=== PATIENT | female | born 1945 | race Caucasian/White ===

== ENCOUNTER 2016-10-01 05:33 | Inpatient (IN) | payer OTHER ==
[~2016-10-01] VITALS: Ht 162.6 cm; Wt 82.6 kg
--- NOTE | ~2016-10-01 | O ---
[facility] [place] [address] OPERATIVE REPORT Name: CHACE HAJI Room #: 418-P [facility] IN M.R.#: [id number] Admission: 10/01/16 Attend Phys: Atilio Orozco MD, Discharge: 10/04/16 Date of : 45 Report #: [id number] THIS REPORT FOR: //name// CC: Serena Orozco DATE OF SERVICE: 10/01/2016 PREOPERATIVE DIAGNOSES: 1. Recurrent incisional ventral hernia. 2. Colostomy status. 3. Hypertension. 4. Chronic obstructive pulmonary disease. 5. Obstructive sleep apnea, CPAP dependent. 6. Diabetes mellitus. 7. Hyperlipidemia. 8. Obesity with a body mass index of 31.56. POSTOPERATIVE DIAGNOSES: 1. Incarcerated recurrent incisional ventral hernia. 2. Colostomy status. 3. Hypertension. 4. Chronic obstructive pulmonary disease. 5. Obstructive sleep apnea, CPAP dependent. 6. Diabetes mellitus. 7. Hyperlipidemia. 8. Obesity with a body mass index of 31.56. 9. Ischemic, nonviable abdominal wall fascial tissue. 10. Loss of abdominal domain. PROCEDURES PERFORMED: 1. Exploratory laparotomy. 2. Extensive lysis of adhesions. 3. Debridement of ischemic/nonviable abdominal wall fascial tissue. 4. Bilateral component separation of the anterior abdominal wall to achieve a tension-free fascial closure. 5. Complex abdominal wall reconstruction with open repair of her incarcerated recurrent incisional ventral hernia with bioresorbable mesh. 6. Adjacent tissue transfer closure of the anterior abdominal wall measuring 32 x 29 cm in dimension (928 square cm). 7. Placement of a topical wound VAC device (Prevena). SURGEON: Atilio Orozco MD STUFFING MACHINE OPERATOR: Maycol Mccaryt MD [address] [address] OPERATIVE REPORT Name: CHACE HAJI Room #: 418-P DIS IN .R.#: [id number] Admission: 10/01/16 Attend Phys: Atilio Orozco MD, Discharge: 10/04/16 Date of : 45 Report #: [id number] ANESTHESIA: General endotracheal anesthesia. ESTIMATED BLOOD LOSS: Minimal (less than 20 mL). COMPLICATIONS: None appreciated. SPECIMENS: The ischemic nonviable abdominal wall tissue with a small portion of nonabsorbed bioresorbable mesh to pathology. INDICATIONS: The patient is a 71-year-old obese female who follows up approximately 11 months status post a complex abdominal wall reconstruction with a colostomy reversal. Procedure was done in conjunction with Dr. Lilli Rondon of the colorectal surgery service. Unfortunately, the patient did develop an anastomotic leak from her colorectal anastomosis and then underwent an emergent reexploration with placement of an end colostomy once again. The patient was quite ill postoperatively, but has recovered nicely and has been in her usual state of health since then. The patient did develop 3 small areas where her longitudinal midline wound had infection and was nonhealing and underwent aggressive local wound care. Since that time, the patient has developed bulging at the superior aspect of her longitudinal midline wound consistent with a recurrent incisional ventral hernia likely due to her acute illness and the emergent reexploration needed at the time of her prior operation. As such, indication was for open repair today. PROCEDURE: After explaining the risks, benefits and alternatives of the procedure with the patient in detail in the preoperative holding area and obtaining written consent, the patient was brought to the operating room and placed supine on the operating room table. After conducting a thorough timeout procedure, verifying correct patient and procedure, the patient was given general endotracheal anesthesia. Once adequate anesthesia was obtained, her SCDs were hooked up to pneumatic compression device, she was given a preoperative dose of antibiotics in line with the SCIP protocol. The patient's abdomen was prepped and draped in standard surgical sterile fashion after placing a Watkins catheter in the colostomy and then we used Ioban to cover over the colostomy to prevent intra-procedural contamination. A #10 bladed scalpel was now used to create a longitudinal midline wound from the subxiphoid location to the supraumbilical location. Electrocautery was used to carry this down through skin and subcutaneous tissues to ensure hemostasis. Once I arrived upon the fascia in the superior most aspect of the incision, I was able to gain entry into the abdomen through territory where finger was placed into the abdomen and I proceeded to open the midline wound in a controlled fashion with a finger in the abdomen to prevent injury. Upon doing so, we bisected the hernia sac down the midline as our fascial edges had retracted laterally. I now carried out lysis of adhesions sweeping the transverse colon down away from the posterior aspect of the anterior abdominal wall, but luckily we did not see any evidence of small-bowel in the bed of the wound whatsoever and thereby without [address] [address] OPERATIVE REPORT Name: CHACE HAJI Room #: 418-P DIS IN M.R.#: [id number] Admission: 10/01/16 Attend Phys: Atilio Orozco MD, Discharge: 10/04/16 Date of : 45 Report #: [id number] manipulating small-bowel, hopefully her chance of developing an ileus will be lessened. Once we had cleared off the entirety of the posterior aspect of the anterior abdominal wall in the upper abdomen, the colostomy was identified and we felt no evidence of a parastomal hernia. The patient did have several areas of abdominal wall fascial tissue that appeared ischemic and had nonabsorbed bioresorbable mesh from her prior exploration and this was excised in an excisional debridement fashion and passed off the field as specimen. Now that we had cleared off the fascial edges circumferentially, the defect itself was sizable and measured approximately 17 cm in craniocaudal dimension x 8 cm laterally. Placing Roshan clamps on the fascial edges in attempts at medialize in the fascial edges showed that it was under extreme tension and as such, I proceeded to clear off the fascia circumferentially externally creating large skin flaps with electrocautery. I now performed a bilateral component separation technique of the anterior abdominal wall by releasing the external oblique by scoring along the lateral aspect of the rectus abdominis muscle bilaterally. This allowed significant medial mobilization of the midline fascial edges and these could now be brought together in a tension free fashion. At this juncture, I now proceeded to close the midline fascial wound using looped #1 PDS in standard running fashion, being careful that we did not injure bowel or the colostomy in any way. Once this was closed down the midline, I proceeded to buttress the repair with a piece of Phasix bioresorbable mesh added as an onlay. I selected a piece that was 20 x 25 cm in dimension and as we had created large skin flaps circumferentially, the mesh itself was almost perfectly sized with just slight tailoring necessary with curved Shaw scissors. I then anchored the mesh into place as an onlay using several sutures of 0 PDS suture in standard fashion. This gave us excellent overlap in the superior and inferior aspects of at least 4 cm and significant lateral overlap. As I had created large skin flaps circumferentially, I wanted to attain soft tissue coverage overlying the onlay mesh and as such, I did perform an adjacent tissue transfer closure of the anterior abdominal wall. Electrocautery was used to score internally and along the lateral aspect and this allowed me to medially rotate subcutaneous tissue overlying the mesh. This tissue was anchored into position using 3-0 Vicryl in standard interrupted inverted fashion at several locations. This gave us excellent soft tissue coverage overlying the onlay mesh. I then used interrupted 3-0 Vicryl sutures in standard interrupted inverted fashion to anchor dermis as well. Skin gurpreet were then applied. It should be noted I did bring out a 19-Citizen Of [place] round Ozzy-Larkin drain out of the right lower quadrant, which was placed in the subcutaneous space prior to performing an adjacent tissue transfer closure to evacuate any potential seroma postoperatively. This was anchored to the skin using 2-0 nylon in standard fashion. Now that skin gurpreet were applied to the longitudinal midline wound, I did elect to place a Prevena topical wound VAC device as she does have a colostomy and this will help prevent contamination. Prevena device was applied in standard fashion, it was attached to the self contained negative pressure suction apparatus with no evidence of a leak seen. The Watkins catheter that was placed in the ostomy was now removed and a standard ostomy appliance was [facility] [address] [place] [address] OPERATIVE REPORT Name: CHACE HAJI Room #: 418-P DIS IN M.R.#: [id number] Admission: 10/01/16 Attend Phys: Atilio Orozco MD, Discharge: 10/04/16 Date of : 45 Report #: [id number] applied. At the end of the procedure, all instrument, needle, and sponge counts were correct. The patient tolerated the procedure without incident, was awakened in the operating room and transitioned to the recovery room in stable condition with no apparent complications. <ELECTRONICALLY SIGNED> By: Atilio Orozco MD, FACS 10/04/16 1818 [id number] Atilio Orozco MD, FACS /nt
--- NOTE | ~2016-10-01 | S ---
[facility] [place] [address] SURGICAL PATH RPT PROCEDURE Name: CHACE PRECIADO Room #: 418-P DIS IN M.R.#: [id number] Admission: 10/01/16 Date of : 45 Discharge: 10/04/16 Report #: [id number] Path Case #: [id number] PATHOLOGY REPORT COLLECTION DATE: 10/01/2016 RECEIVED DATE: 10/01/2016 SUBMITTING PHYS: Dr. Atilio Orozco OTHER PHYS: Dr. Serena Mccain SPECIMEN(S) RECEIVED: A.Abdominal wall tissue * * * * * * * * * * * * FINAL DIAGNOSIS: Skin and subcutaneous tissue, abdominal wall tissue, repair: - Moderate chronic inflammation along with reactive changes associated with focal polarizable material consistent with mesh. (IUV:mml; d/t: 10/05/2016) PATHOLOGIST: Xenia Llamas M.D. REPORT ELECTRONICALLY SIGNED BY: Xenia Llamas M.D. DATE/TIME: 10/05/2016 16:38 * * * * * * * * * * * * GROSS PATHOLOGY: Received in formalin labeled "Chace Preciado, abdominal wall tissue," is a piece of fibromembranous tissue surrounding a segment of mesh, measuring 5.2 x 2.1 x 1.5 cm. No nodules or lesions are identified. Under Ground Miner tissue is submitted in cassette A1. (MARK; 10/02/2016) CLINICAL HISTORY: Ventral hernia INITIAL CPT CODE(S): 14636 Professional services performed by [facility] at [facility] [address], [place] [address] Technical services performed by [facility] at [address] [place] [id number]. [facility] [address] [place] [address] SURGICAL PATH RPT PROCEDURE Name: ADITHYACHACE Allan Room #: 418-P [facility] IN M.R.#: [id number] Admission: 10/01/16 Date of : 45 Discharge: 10/04/16 Report #: [id number] Path Case #: [id number] [address] PHONE: [phone] DIRECTOR: Jayesh Ren M.D. * * * END OF REPORT * * *
[~2016-10-01 05:33] MED LIST: ADVAIR 250-501 EACH; ADVAIR 250-501 EACH INH; ADVAIR HFA115 MCG/21 INH; ALDACTONE25 MG PO; APAP650 PO; ASPIRIN EC325 MG PO; ASPIRIN325 PO; AVANDAMET 2 MG1 EACH; BACTROBAN CREAM30 G1 TOP; BENZONATATE200 MG; BIOTENE1000 ML MM; BROVANA15 MCG/2 M INH; CALCIUM 600 +1 EAC1; CALCIUM 600 +1 EAC1 PO; CEFTIN500 MG PO; CENTRUM SILVER1 EAC4 PO; CIPROFLOXACIN500 M1 PO; CIPROFLOXACIN500 M3 PO; COLACE100 MG PO; D3; DICLOFENAC SODI75 M1; DICLOFENAC SODI75 M2 PO; DICLOFENAC SODI75 MG PO; DOXYCYCLINE 10100 M1; DUONEB 2.5-0.5 M3 ML; DUONEB 2.5-0.5 M3 ML INH; ECHINACEA167 MG PO; ENOXAPARIN40 MG/0.1 SUBQ; FENOFIBRATE160 MG PO; FISH OIL 1,001000 M1 PO; FISH OIL 1,001000 M2 PO; FISH OIL SOFTG1 EACH; FLEXERIL PO; FLOMAX PO; FLORINEF ACETA0.1 MG PO; FUROSEMIDE 40 M40 M1 PO; GABAPENTIN 100100 MG PO; GUAIFENESIN WI120 ML PO; HYDROCODON-ACE1 EAC7 PO; HYDROCODONE-AP1 EAC6 PO; IPRAT-ALBUT 0.5-3 ML IH; IRON325 PO; LASIX 40 MG TAB40 M2 PO; LEVAQUIN 750 M750 MG PO; METFORMIN HCL500 MG PO; MIRALAX17 G1 PO; NAPROSYN500 MG PO; NORCO 5-325 TA1 EACH PO; NOVOLOG100 UNIT/1 SUBQ; OMEPRAZOLE20 MG; OMEPRAZOLE40 MG PO; OXYCODONE HCL 55 MG PO; OXYIR5 MG PO; PERCOCET 5-3251 EACH PO; PHENERGAN 25 MG25 M1 PO; PREDNISONE 10 M10 MG PO; PRILOSEC40 MG PO; PROAIR HFA8.5 GM; PROMS25 WY RECTAL; SPIRIVA; SPIRIVA INH; TRAMADOL PO; TRICOR145 MG PO; ULTRACET TABLE1 EACH PO; ULTRACET TABLET1 TAB; ULTRACET TABLET1 TAB PO; VITAMIN D3 PO; VITAMIN D31000 UNI2 PO; VITAMINC500 PO; ZOCOR40 MG PO; ZOFRAN ODT4 MG PO; ZOLOFT 50 MG TA50 M1; ZOLOFT100 MG PO
[2016-10-01 06:46] LABS: HEMATOCRIT 39.6 % (37.0-47.0); HEMOGLOBIN 13.3 gm/dL (12.0-15.0); MCH 29.3 pg (26.0-34.0); MCHC 33.5 g/dL (28.0-37.0); MCV 87.4 fL (80.0-100.0); RBC 4.53 mil/uL (4.20-5.00); RDW 14.4 % (10.5-14.5); WBC 11.6 thou/uL (4.0-11.0)
[2016-10-01 06:54] LABS: CALCIUM 9.1 mg/dL (8.5-10.1); CREATININE 1.1 mg/dL (0.6-1.0); POTASSIUM 3.8 mmol/L (3.5-5.1)
[2016-10-01 07:00] VITALS: BP 130/73
[2016-10-01 11:56] VITALS: BP 135/70
[2016-10-01 12:15] VITALS: BP 135/70
[2016-10-01 12:45] VITALS: BP 124/65; BP 139/69
[2016-10-01 15:27] VITALS: BP 117/67
[2016-10-01 20:00] VITALS: BP 117/52
[2016-10-02 04:00] VITALS: BP 125/67
[2016-10-02 04:00] LABS: CALCIUM 8.2 mg/dL (8.5-10.1); CREATININE 1.1 mg/dL (0.6-1.0)
[2016-10-02 04:07] LABS: POTASSIUM 4.9 mmol/L (3.5-5.1)
[2016-10-02 04:08] LABS: HEMATOCRIT 36.5 % (37.0-47.0); HEMOGLOBIN 11.9 gm/dL (12.0-15.0); MCH 29.1 pg (26.0-34.0); MCHC 32.5 g/dL (28.0-37.0); MCV 89.4 fL (80.0-100.0); RBC 4.08 mil/uL (4.20-5.00); RDW 14.7 % (10.5-14.5); WBC 22.3 thou/uL (4.0-11.0)
[2016-10-02 07:04] VITALS: BP 95/50
[2016-10-02 14:57] VITALS: BP 98/43
[2016-10-02 19:31] VITALS: BP 94/34
[2016-10-03 03:30] VITALS: BP 139/67
[2016-10-03 04:43] LABS: HEMOGLOBIN 10.3 gm/dL (12.0-15.0); MCH 28.7 pg (26.0-34.0); MCV 89.7 fL (80.0-100.0); PLATELET COUNT 216 thou/uL (150-400); RBC 3.57 mil/uL (4.20-5.00); WBC 15.5 thou/uL (4.0-11.0)
[2016-10-03 04:45] LABS: MANUAL DIFF YES
[2016-10-03 04:50] LABS: CALCIUM 8.6 mg/dL (8.5-10.1); CREATININE 0.8 mg/dL (0.6-1.0); POTASSIUM 3.9 mmol/L (3.5-5.1)
[2016-10-03 05:58] LABS: ABSOLUTE NEUTROPHILS 12.7 thou/uL (1.4-8.2); TOTAL CELL COUNT 100
[2016-10-03 07:20] VITALS: BP 122/60
[2016-10-03 15:33] VITALS: BP 151/71
[2016-10-03 20:00] VITALS: BP 139/53
[2016-10-04 02:10] LABS: GLYCOHEMOGLOBIN (HGB A1C) 7.9 % (4.8-5.6)
[2016-10-04 03:54] LABS: BASOPHILS 0.5 % (0.0-2.0); EOSINOPHILS 1.3 % (0.0-3.0); HEMATOCRIT 31.8 % (37.0-47.0); HEMOGLOBIN 10.7 gm/dL (12.0-15.0); LYMPHOCYTES 16.9 % (24.0-44.0); MCH 29.3 pg (26.0-34.0); MCHC 33.5 g/dL (28.0-37.0); MCV 87.4 fL (80.0-100.0); MONOCYTES 8.2 % (1.0-8.0); PLATELET COUNT 231 thou/uL (150-400); POLYS 73.1 % (36.0-66.0); RBC 3.63 mil/uL (4.20-5.00); RDW 14.3 % (10.5-14.5)
[2016-10-04 04:00] VITALS: BP 153/88
[2016-10-04 04:01] LABS: CALCIUM 8.8 mg/dL (8.5-10.1); CREATININE 0.7 mg/dL (0.6-1.0); POTASSIUM 3.5 mmol/L (3.5-5.1)
[2016-10-04 04:02] LABS: MANUAL DIFF NO
[2016-10-04 07:14] VITALS: BP 160/76
[2016-10-04] MEDS ORDERED: HYDROCODONE-AP1 EAC6 PO (11:46)
[2016-10-04] MEDS ORDERED: SENNA-S TABLET1 EACH PO (11:46)
[2016-10-04 12:53] VITALS: BP 160/76
== END 2016-10-04 14:58 | disposition home or self-care (01) | DRG 336 ==
LOC: 4E 05:33 → TBA 05:33 → PRE 09:47 → 4E 11:45 → PRE 15:18 → 4E 10-04 14:58
PROVIDERS: Internal Medicine Endocrinology, Diabetes & Metabolism; Surgery
PROC: 0DNE0ZZ Release Large Intestine, Open Approach (ICD-10-PCS; principal; 2016-10-01)
PROC: 0JB80ZZ Excision of Abdomen Subcutaneous Tissue and Fascia, Open Approach (ICD-10-PCS; principal; 2016-10-01)
PROC: 0WUF0JZ Supplement Abdominal Wall with Synthetic Substitute, Open Approach (ICD-10-PCS; principal; 2016-10-01)
DX: K43.0 Incisional hernia with obstruction, without gangrene (principal); N17.9 Acute kidney failure, unspecified; I10 Essential (primary) hypertension; G47.33 Obstructive sleep apnea (adult) (pediatric); E11.9 Type 2 diabetes mellitus without complications; E78.5 Hyperlipidemia, unspecified; E66.9 Obesity, unspecified; F32.9 Major depressive disorder, single episode, unspecified; E78.00 Pure hypercholesterolemia, unspecified; Z96.649 Presence of unspecified artificial hip joint; J44.9 Chronic obstructive pulmonary disease, unspecified; N20.0 Calculus of kidney; Z98.1 Arthrodesis status; Z87.891 Personal history of nicotine dependence; Z68.31 Body mass index [BMI] 31.0-31.9, adult; Z93.3 Colostomy status
CPT/HCPCS: 10783; 50010; 50101; 50386; 50953; 51412; 54022; 54109; 56524; 56525; 56527; 56530; 57092; 62110; 62900; 70005

== ENCOUNTER 2018-03-28 06:47 | Inpatient (IN) | payer OTHER ==
[~2018-03-28] VITALS: Ht 162.6 cm; Wt 78.5 kg
--- NOTE | ~2018-03-28 | PATH ---
[facility] [address] [place] [address] PATHOLOGY RPT PROCEDURE Name: ADITHYACHACE Lemus Room #: 424-P ADM IN M.R.#: [id number] Admission: 03/29/18 Date of : 45 Discharge: Report #: [id number] Path Case #: [id number] [facility] Accession Number: [id number] . 01 Material submitted: . PARASTOMAL HERNIA SAC . 01 Clinical history: . Parastomal hernia . 02 Diagnosis: Fiber adipose tissue, parastomal hernia sac, repair: - Reactive changes and congestion, compatible with a hernia sac. - Incidental reactive lymph node. . (IUV:at;03/30/2018) QTA/03/30/2018 . 02 Electronically signed: . Xenia Llamas MD, Pathologist NPI- [id number] . 01 Gross description: . The specimen is received in formalin, labeled "Chace Preciado, parastomal hernia sac" and consists of a segment of membranous tissue with attached yellow adipose tissue measuring 5.5 x 2.3 x 0.5 cm. Sectioning reveals an encapsulated possible nodule measuring 0.3 x 0.3 cm. No additional nodules or mass lesions are identified. Chief Librarian Extension Department sections are submitted in A1-A2 with the possible nodule in A1. (SDY; 03/29/2018) SYU/SYU . 02 Pathologist provided ICD-10: K43.5 . 02 CPT . 158440 Specimen Comment: A courtesy copy of this report has been sent to Specimen Comment: [phone], . Specimen Comment: Report sent to / DR COE Specimen Comment: A duplicate report has been generated due to demographic updates. Performed at: 01 [facility] [address] [id number] MD Bruno Rondon MD Phone: [phone] Performed at: [address] [address] PATHOLOGY RPT PROCEDURE Name: CHACE PRECIADO Room #: 424-P ADM IN M.R.#: [id number] Admission: 03/29/18 Date of : 45 Discharge: Report #: [id number] Path Case #: [id number] [address] [id number] MD Xenia Llamas MD Phone: [phone]
--- NOTE | ~2018-03-28 | O ---
[facility] [place] [address] OPERATIVE REPORT Name: CHACE HAJI Room #: 424-P [facility] IN M.R.#: [id number] Admission: 03/29/18 Attend Phys: Atilio Orozco MD, Discharge: 03/31/18 Date of : 45 Report #: [id number] THIS REPORT FOR: //name// CC: Serena Mccain Atilio Orozco DATE OF SERVICE: 03/29/2018 PREOPERATIVE DIAGNOSIS: Incarcerated recurrent incisional and parastomal hernia. POSTOPERATIVE DIAGNOSES: 1. Incarcerated recurrent incisional and parastomal hernia. 2. Intra-abdominal adhesions. PROCEDURES PERFORMED: 1. Exploratory laparotomy with extensive lysis of adhesions. 2. Debridement of ischemic/necrotic abdominal wall fascia. 3. Complex abdominal wall reconstruction with repair of multiple incarcerated recurrent incisional and parastomal hernia using bioresorbable mesh. 4. Unilateral right-sided component separation. 5. Adjacent tissue transfer closure of the anterior abdominal wall measuring 38 x 35 cm in dimension (1330 square cm). 6. Placement of a topical Prevena wound VAC device. SURGEON: Atilio Orozco MD RN LPN CNA: Hany Landin DO ANESTHESIA: General endotracheal anesthesia. ESTIMATED BLOOD LOSS: Minimal (20 mL). COMPLICATIONS: None appreciated. SPECIMENS: Ischemic/necrotic abdominal wall fascia to pathology. INDICATIONS: The patient is a 72-year-old female with a complex past surgical history, who has a descending colostomy in the left mid abdomen with evidence of parastomal herniation by physical exam and by CT scan. In addition, the patient has easily palpable recurrent incisional hernias down her longitudinal midline incision and as such, indication was for the above-mentioned procedures today. DESCRIPTION OF PROCEDURE: After explaining the risks, benefits and alternatives of the procedure with the patient in detail in the preoperative holding area and [facility] [address] [place] [address] OPERATIVE REPORT Name: CHACE HAJI Room #: 424-P DIS IN ..#: [id number] Admission: 03/29/18 Attend Phys: Atilio Orozco MD, Discharge: 03/31/18 Date of : 45 Report #: [id number] obtaining written consent, the patient was brought to the operating room and placed supine on the operating room table. After conducting a thorough timeout procedure, verifying correct patient and procedure, the patient was given general endotracheal anesthesia. Once adequate anesthesia was obtained, her SCDs were hooked up to pneumatic compression device and she was given a preoperative dose of antibiotics in line with the SCIP protocol. The patient's abdomen was prepped and draped in standard surgical sterile fashion, placing a 4 x 4 over the colostomy and using an Ioban for sterility. A #10 bladed scalpel was used to create a longitudinal midline incision following her old scar. Electrocautery was used to carry this down through skin and subcutaneous tissues to ensure hemostasis. Once I arrived upon the level of the fascia, I encountered numerous incarcerated recurrent incisional hernias, through which a finger was placed and I was able to open the longitudinal midline wound in a controlled fashion to prevent injury from thermal burn. Roshan clamps were placed along the level of fascia and I proceeded to take down intra-abdominal adhesions, which were dense and significant throughout with numerous loops of small bowel incarcerated in the parastomal hernia. The recurrent incisional hernias down the longitudinal midline wound were smaller and included incarcerated omentum throughout. Once I had taken all of these adhesions down, we were able to fully evaluate the midline and parastomal wounds. At the midline, fascial wound appeared to easily come together; however, the parastomal wound could be brought together, but would place significant tension on the longitudinal midline wound upon closure. At this juncture, I elected to perform a right-sided component separation of the external oblique by scoring externally along the lateral border of the rectus abdominis muscles for possible in the craniocaudal dimension. This was done only after creating large skin flaps circumferentially throughout the abdominal wall down to the level of fascia. This allowed significant medial mobilization of the right-sided fascia and we take tension off of the parastomal hernia as well. The parastomal hernia was repaired using #1 PDS suture to reapproximate the defect in the superior dimension that is where it appeared to have been created. This was brought to where it was snugged to the colostomy, but not tight, so that it did not stricture. Once this was repaired and in performing the large skin flaps, we did encounter ischemic and necrotic abdominal wall fascia that was debrided with electrocautery back to healthy tissue and this was passed off the field as specimen. We now closed the midline fascial wound using looped #1 PDS suture in standard running fashion, which repaired the midline fascial defects and as the parastomal hernia already been sutured closed, the abdominal wall was repaired at this juncture. I selected a large piece of Phasix mesh measuring 30 x 25 cm in dimension and created a keyhole through which the ostomy would reside. This was tailored to the abdominal wall, anchored to the fascia using numerous sutures of 0 PDS suture as well as 30 mL of Tisseel. This gave us an excellent buttressing of both the parastomal hernia as well as the incarcerated recurrent incisional hernias as far lateral as possible in all directions. A 19-[place] round Ozzy-Larkin drain was brought out and anchored to the skin using 2-0 nylon in standard fashion. I now performed adjacent tissue transfer closure of [facility] [address] [place] [address] OPERATIVE REPORT Name: CHACE HAJI Room #: 424-P [facility] IN .R.#: [id number] Admission: 03/29/18 Attend Phys: Atilio Orozco MD, Discharge: 03/31/18 Date of : 45 Report #: [id number] the anterior abdominal wall by making relaxing incisions internally to allow medial mobilization of the vascularized pedicles of subcutaneous tissue to overly the mesh and this was anchored down the midline using several layers of interrupted inverted 3-0 Vicryl sutures. Skin was then closed with skin gurpreet and a topical Prevena wound VAC device was placed in standard fashion. Digital finger intubation of the colostomy showed it to be patent to a subfascial level. A sterile colostomy appliance was then applied as was an abdominal binder completing the procedure. At the end of the procedure, all instrument, needle and sponge counts were correct. The patient tolerated the procedure without incident, was awakened in the operating room, transitioned to the recovery room in stable condition with no apparent complications. <ELECTRONICALLY SIGNED> By: Atilio Orozco MD, FACS 04/18/18 0902 [id number] Atilio Orozco MD, FACS /nt
[~2018-03-28 06:47] MED LIST changes: +ACETAMINOP-COD118 ML PO; +ADVAIR HFA 115-12 G1 INH; -ADVAIR HFA115 MCG/21 INH; +CARVEDILOL3.125 MG PO; +CEFUROXIME250 MG PO; +HUMALOG100 UNIT/1 SUBQ; +HUMALOG100 UNIT/2 SUBQ; +KLOR-CON 1010 MEQ PO; +LEVAQUIN 250 M250 MG PO; +MAGOX 400400 MG PO; +PRANDIN1 MG PO; +PROBIOTIC1 EAC1 PO; +PULMICORT0.5 MG/22 INH; +SENNA-S TABLET1 EACH PO; +SIMVASTATIN40 MG PO; +STOOL SOFTENER100 MG PO; +TESSALON PERLE100 MG PO; +VENTOLIN HFA 1818 GM INH
[2018-03-29 06:42] LABS: HEMATOCRIT 36.9 % (37.0-47.0); HEMOGLOBIN 12.7 gm/dL (12.0-15.0)
[2018-03-29 06:59] LABS: CALCIUM 9.5 mg/dL (8.5-10.1); CREATININE 1.7 mg/dL (0.6-1.0); POTASSIUM 4.3 mmol/L (3.5-5.1)
[2018-03-29 07:05] LABS: ALBUMIN 3.6 g/dL (3.4-5.0); TOTAL BILIRUBIN 0.2 mg/dL (<0.1-1.0); TOTAL PROTEIN 7.3 g/dL (6.4-8.2)
[2018-03-29 07:40] VITALS: BP 130/49
[2018-03-29 12:47] VITALS: BP 115/48
[2018-03-29 13:37] VITALS: BP 116/44
[2018-03-29 20:11] VITALS: BP 89/46
[2018-03-30 00:06] VITALS: BP 107/42
[2018-03-30 04:31] VITALS: BP 112/47
[2018-03-30 06:16] LABS: HEMATOCRIT 31.9 % (37.0-47.0); MCH 30.1 pg (26.0-34.0); MCHC 32.7 g/dL (28.0-37.0); MCV 91.9 fL (80.0-100.0); RBC 3.46 mil/uL (4.20-5.00); RDW 13.2 % (10.5-14.5)
[2018-03-30 06:26] LABS: HEMOGLOBIN 10.4 gm/dL (12.0-15.0)
[2018-03-30 06:28] LABS: CALCIUM 8.9 mg/dL (8.5-10.1); CREATININE 1.3 mg/dL (0.6-1.0); POTASSIUM 4.3 mmol/L (3.5-5.1)
[2018-03-30 08:15] VITALS: BP 100/51
[2018-03-30 20:05] VITALS: BP 140/41
[2018-03-31] VITALS (7 sets, daily range): BP systolic 113–130; BP diastolic 38–58
[2018-03-31 05:57] LABS: BASOPHILS 0.6 % (0.0-2.0); EOSINOPHILS 2.4 % (0.0-3.0); HEMATOCRIT 33.1 % (37.0-47.0); LYMPHOCYTES 15.8 % (24.0-44.0); MCH 30.1 pg (26.0-34.0); MCHC 33.1 g/dL (28.0-37.0); MCV 90.9 fL (80.0-100.0); MONOCYTES 9.4 % (1.0-8.0); PLATELET COUNT 217 thou/uL (150-400); POLYS 71.8 % (36.0-66.0); RBC 3.64 mil/uL (4.20-5.00); WBC 9.7 thou/uL (4.0-11.0)
[2018-03-31 06:10] LABS: CALCIUM 9.2 mg/dL (8.5-10.1); CREATININE 1.3 mg/dL (0.6-1.0); POTASSIUM 4.8 mmol/L (3.5-5.1)
[2018-03-31] MEDS ORDERED: NORCO 5-325 TA1 EACH PO (08:48)
== END 2018-03-31 17:45 | disposition home or self-care (01) | DRG 337 ==
LOC: PRE 06:47 → TBA 03-29 05:29 → 4E 03-29 05:29 → PRE 03-29 12:32 → 4E 03-29 12:46 → ENTRNSPT 03-31 17:32 → 4E 03-31 17:45
PROVIDERS: Anesthesiology; Surgery
PROC: 0WUF0JZ Supplement Abdominal Wall with Synthetic Substitute, Open Approach (ICD-10-PCS; principal; 2018-03-29)
PROC: 0JB80ZZ Excision of Abdomen Subcutaneous Tissue and Fascia, Open Approach (ICD-10-PCS; principal; 2018-03-29)
PROC: 0DNW0ZZ Release Peritoneum, Open Approach (ICD-10-PCS; principal; 2018-03-29)
PROC: 0JX80ZZ Transfer Abdomen Subcutaneous Tissue and Fascia, Open Approach (ICD-10-PCS; principal; 2018-03-29)
DX: K43.0 Incisional hernia with obstruction, without gangrene (principal); K43.3 Parastomal hernia with obstruction, without gangrene; K66.0 Peritoneal adhesions (postprocedural) (postinfection)
CPT/HCPCS: 10783; 50010; 50101; 50128; 50331; 50386; 50455; 50953; 51412; 51437; 56524; 56525; 56527; 56530; 57092; 57190; 62110; 62900; 70005